=== PATIENT | male | born 1960 | race Caucasian/White ===

== ENCOUNTER 2023-08-02 05:29 | Inpatient (IN) | payer MEDICARE, OTHER, SELFPAY ==
[2023-08-01 20:34] VITALS: BP 165/137; BMI 32.1
[2023-08-01 21:06] LABS: % Basophils 0.3 % (0-2); % Eosinophils 0.1 % (0-6); % Immature Granulocytes 0.7 % (0-0.5); % Lymphocytes 3.4 % (20.5-51.1); % Monocytes 5.7 % (1.7-9.3); % Neutrophils 89.8 % (42.2-75.2); Absolute Immature Granulocytes 0.1 10^3/uL (0-0.05); Absolute Lymphocytes 0.3 10^3/uL (1.2-3.4); Absolute Monocytes 0.5 10^3/uL (0.1-0.6); Absolute Neutrophils 8.5 10^3/uL (1.4-6.5); Hematocrit 40.9 % (39.0-52.0); Hemoglobin 15.2 g/dL (13.0-18.0); Mean Corp Hgb Conc. 37.2 g/dL (33.0-37.0); Mean Corpuscular Hgb 34.1 pg (27.0-31.0); Mean Corpuscular Volume 91.7 fL (80.0-94.0); Mean Platelet Volume 10.9 fL (7.4-10.4); Nucleated Red Blood Cells % 0 % (-); Platelet Count 212 10^3/uL (130-400); Red Blood Cell Count 4.46 10^6/uL (4.70-6.10); Red Cell Dist. Width 13.5 % (11.5-14.5); White Blood Cell Count 9.5 10^3/uL (4.8-10.8)
[2023-08-01 21:16] LABS: COVID-19 Antigen Negative (Negative)
[2023-08-01 21:18] LABS: ALT (SGPT) 51 U/L (0-50); AST (SGOT) 73 U/L (17-59); Albumin 3.6 g/dl (3.5-5.0); Alkaline Phosphatase 83 U/L (38-126); Blood Urea Nitrogen 24 mg/dl (9-20); Calcium 9.3 mg/dl (8.4-10.2); Carbon Dioxide 19 mmol/L (22-30); Chloride 95 mmol/L (98-107); Estimated Creatinine Clearance 55 ml/min; Glucose 191 mg/dl (70-99); Potassium 4.4 mmol/L (3.5-5.1); Sodium 128 mmol/L (135-145); Total Bilirubin 1.3 mg/dl (0.2-1.3); Total Protein 6.1 g/dl (6.3-8.2); eGFR 51.35
[2023-08-02] VITALS (11 sets, daily range): BP systolic 92–134; BP diastolic 42–82; BMI 32.0
[2023-08-02] MEDS: TYLENOL 1000 MG PO (01:29)
[2023-08-02] MEDS: TORADOL 15 MG IV (01:30)
[2023-08-02] MEDS: NSS 1000 IV ×3 (01:31→06:43)
[2023-08-02] MEDS: BENADRYL 25 MG IV (01:32)
[2023-08-02] MEDS: REGLAN 10 MG IV (01:33)
--- NOTE | 2023-08-02 02:15 | ED.GENMED ---
History of Present Illness
General
Chief Complaint: Cold/Flu/URI Symptoms
Source: patient, spouse and family
Exam Limitations: none
Time Seen by Provider: 08/02/23 00:35
Nursing documentation reviewed up to this point in time: agreed with
Travel History
Have you had any contact with someone who has COVID-19?: No
Do you have any symptoms of coronavirus? Fever > 100 degrees, chills, cough, shortness of breath, sore throat, loss of taste or smell, muscle aches, or headache?: No
History of Present Illness
History of Present Illness:
63-year-old male past medical history of diabetes currently on metformin hypothyroidism presenting to the emergency department today with concerns of intermittent fevers of the past 4 days has had some ongoing cough also recently was treated for
hematuria at [facility] last week and has been treated with Bactrim that he finished today. Denies any specific chest pain shortness of breath does have a mild headache denies any neck pain denies abdominal pain changes in bowel
movements. Has had some ongoing hematuria.
Review of Systems
Review of Systems
Allergies reviewed?: Yes
All Other Systems: ROS reviewed and negative except as documented in HPI and ROS
Phy Exam
Physical Exam
Physical Exam:
GENERAL: Alert , in no apparent distress
EYE: pupils equal and reactive
NECK: Supple, no significant adenopathy.
ENT: o/p clr, mmm.
CARDIAC: Regular rate and rhythm .
LUNGS: Clear breath sounds bilaterally, no acute respiratory distress, no wheezes/rales/rhonchi
ABDOMEN: Soft, without focal tenderness, no r/g, no cvat
NEUROLOGICAL: Alert and oriented, no focal neuro deficits
SKIN: Warm and dry, skin intact.
MUSCULOSKELETAL: No edema, well perfused.
PSYCH: Normal and appropriate interaction.
Course
Orders/Labs/Results
Orders:
Orders
08/01/23 20:39
Electrocardiogram (*1) Urgent
Reason for Study: Other
Other Reason for Exam: Possible Sepsis
08/01/23 20:40
EKG- Treatment ONCE
08/01/23 20:54
COVID-19 Antigen Urgent
Source: Nasal Swab
Complete Blood Count/With Diff Urgent
Comprehensive Metabolic Panel Urgent
Free T4 Urgent
Glycohemoglobin (HgbA1c) Urgent
TSH Urgent
Comment: ADD ON
Influenza A+B Rapid Molecular Urgent
TIMOTHY Source: Nasal Swab
Specimen Description:
08/02/23 01:22
Acetaminophen [Tylenol] 1,000 mg PO NOW STA
Diphenhydramine [Benadryl] 25 mg IV NOW STA
Ketorolac [Toradol] 15 mg IV NOW STA
Metoclopramide [Reglan] 10 mg IV NOW STA
08/02/23 01:23
Chest [CR Chest - 2 Views ] Urgent
Comment:
Reason For Exam: cough fever
08/02/23 01:28
Lactic Acid Urgent
08/02/23 02:29
Add On- LAB Urgent
Tests Added?: tsh free t4
08/02/23 02:30
0.9% Sodium Chloride 1000 ml [Nss] 1,000 ml IV BOLUS
08/02/23 02:32
0.9% Sodium Chloride 1000 ml [Nss] 1,000 ml IV BOLUS
08/02/23 02:53
Cefepime HCl [Maxipime] 2,000 mg IV NOW STA
08/02/23 03:16
Blood Culture Q30M
TIMOTHY Source: Blood/Venous
Specimen Description:
Comment: FROM 2 SEPARATE SITES
Blood Culture Q30M
TIMOTHY Source: Blood/Venous
Specimen Description:
Comment: FROM 2 SEPARATE SITES
08/02/23 03:52
Admit/Transfer Patient As Directed
Co-Sign Provider:
Level of Care: Inpatient admission
Assign to:: Telemetry
Physician / Group: Chanel Kuhn
Diagnosis: sepsis, RADHA
Reason for Telemetry: Chest Pain syndromes
Date to Stop Telemetry: 08/04/23
Time to Stop Telemetry: 11:00
Reason for Hospitalization: sepsis, RADHA
Expected length of stay greater than two midnights?: Yes
ELOS- Estimated Length of Stay in days: 3
I certify the patient meets the requirements for IP care: Yes
08/02/23 03:53
Code Status As Directed
Resuscitation Status: Full Code
08/02/23 04:00
Doxycycline [Vibramycin] 100 mg PO Q12H
Flush (0.9% Sodium Chloride) [Flush (Nss)] See Dose Instructions IV PER PROTOCOL
08/02/23 Breakfast
2000 calorie (17 carb) Diabetic
At Your Request: Full Participation
08/02/23 06:04
0.9% Sodium Chloride 1000 ml [Nss] 1,000 ml IV 100 mls/hr
Acetaminophen [Tylenol] 650 mg PO Q4HPRN PRN
Dextrose 50%-Water [Dextrose 50% Syringe] 12.5 grams IV [id number] PRN
Glucagon [GlucaGen] 1 mg IM PRN PRN
Ondansetron Injectable [Zofran] 4 mg IV Q6HPRN PRN
08/02/23 06:04
Add On- LAB Routine
Tests Added?: HgbA1C to today's lab
Activity As Directed
Activity Level: As Tolerated
Bedside Glucose Monitoring As Directed
Frequency: AC&HS
Comment: Change to q6h if pt on TPN, tube feeding or not eating
Pneumatic Compression Sleeves As Directed
Type: Knee high
Vital Signs As Directed
Frequency: Per unit guidelines
DX Deep Vein Thrombosis Video Routine
08/02/23 07:30
Insulin Aspart Corrective Low [Novolog Flexpen-Low Resistance] See Protocol SC AC
08/02/23 08:00
Cyanocobalamin [Vitamin B-12] 1,000 mcg PO DAILY
Fludrocortisone Acetate [Florinef] 0.1 mg PO DAILY
Levothyroxine [Synthroid] 137 mcg PO DAILY
Tamsulosin [Flomax] 0.4 mg PO DAILY
Venlafaxine [Effexor] 75 mg PO BID
08/02/23 14:00
CefTRIAXone [Rocephin] 1,000 mg IV Q24H
08/03/23 08:08
Comprehensive Metabolic Panel IN AM
Magnesium IN AM
08/03/23 08:09
Complete Blood Count/With Diff IN AM
08/04/23 11:00
DC Protocol for Telemetry ONCE
Abnormal Lab Results
08/01/23
20:54
RBC 4.46 L 10^6/uL
(4.70-6.10)
MCH 34.1 H pg
(27.0-31.0)
MCHC 37.2 H g/dL
(33.0-37.0)
MPV 10.9 H fL
(7.4-10.4)
Abs Immat Gran (auto) 0.1 H 10^3/uL
(0-0.05)
Absolute Neuts (auto) 8.5 H 10^3/uL
(1.4-6.5)
Absolute Lymphs (auto) 0.3 L 10^3/uL
(1.2-3.4)
Immature Gran % 0.7 H %
(0-0.5)
Neutrophils % 89.8 H %
(42.2-75.2)
Lymphocytes % 3.4 L %
(20.5-51.1)
Sodium 128 L mmol/L
(135-145)
Chloride 95 L mmol/L
(98-107)
Carbon Dioxide 19 L mmol/L
(22-30)
BUN 24 H mg/dl
(9-20)
Creatinine 1.5 H mg/dL
(0.7-1.3)
Glucose 191 H mg/dl
(70-99)
Hemoglobin A1c 5.8 H %
(4.0-5.6)
AST 73 H U/L
(17-59)
ALT 51 H U/L
(0-50)
Total Protein 6.1 L g/dl
(6.3-8.2)
08/01/23 20:54
08/01/23 20:54
Vital Signs
Initial and Last Documented VS:
Initial Vital Signs
Pulse Resp BP Pulse Ox
144 22 165/137 98
08/01/23 20:34 08/01/23 20:34 08/01/23 20:34 08/01/23 20:34
Last Documented Vital Signs
Temp Pulse Resp BP Pulse Ox
98.0 F 91 16 101/69 94
08/04/23 15:00 08/04/23 15:00 08/04/23 15:00 08/04/23 15:00 08/04/23 15:00
MDM/Problems Addressed
MDM/Problems Addressed:
63-year-old male presenting to the emergency department today with concerns of intermittent fevers over the past 4 days or so. On arrival here patient has a low-grade temperature and elevated heart rate sinus tachycardia in the 140s but improving
to the low 100s after receiving some fluid. Patient no obvious distress during my examination no specific focality to his examination no abdominal pain no neck pain neck is supple. Unclear cause of patient's fever at this time plan for additional
assessment including chest x-ray urinalysis. Labs do show slightly low sodium level 128 elevated creatinine level 1.5 does come to have some slightly elevated levels at baseline. I was able to review old records from [facility] from 8 days ago
where he had a CT scan with no emergent findings and labs were generally unremarkable urinalysis did not appear to be consistent with a UTI at that time.
*Critical Care Note
Total Time (30-74mins, 75-104mins- exclusive of procedures): Not Applicable
ED Attending Note
-
Portions of this chart may have been created with voice recognition software.� Occasional wrong word or��sound alike� substitutions may have occurred due to the inherent limitations of voice recognition software.
Discharge Plan
Departure
Patient Disposition: Admit
Date of Disposition: 08/02/23
Time of Disposition: 03:11
Admit to: Telemetry
Admit to doctor: Bam
Presentation/result/management discussed w/ accepting MD/DO: Hospitalist
Patient with high blood pressure during this ER visit?: No
Condition: Good
Covid-19: Not Applicable
Discharge Problem:
Acute hyponatremia, Fever, RADHA (acute kidney injury)
Interventions
Interventions:
*Neglect/Abuse Screening Last Done: 08/01/23 20:34
ED- Fall Risk Assessment Last Done: 08/02/23 01:57
*Nursing Disposition Last Done: 08/02/23 06:19
ED- Pulmonary Assessment Last Done: 08/02/23 01:57
Discharge Date and Time
Discharge Date/Time: 08/02/23 06:20
[2023-08-02] MEDS: MAXIPIME 2000 MG IV (03:06)
--- NOTE | 2023-08-02 03:14 | HPS.HSE ---
Family Physician
-
Family Physician: Ernesto Bruno
Chief Complaint
-
flu symptoms
History of Present Illness
Mr. Juni Iglesias is a 63 yo man with hx DM, hypothyroidism, HTN, HLD, BPH, prostate CA s/p radiation who presents to the ER with fevers x 4-5 days. Patient went to [facility] last week for hematuria consisting of blood clots. He was seen in the ER
and sent home on Bactrim. Patient showed me lab results on his phone - CT A/P with possible cystitis and UA with 0-5 WBC. He had plans to follow up with Urology. Over the next couple of days patient developed high fevers up to 103. He did not
seek medical attention and continued taking Bactrim. He describes significant fatigue/weakness with difficulty getting out of bed. + headache. no neck stiffness. no skin rash. + nausea and dry heaves today. His appetite was decreased. He has
outpatient work-up of diarrhea that has improved since cutting out dairy and sees GI, no acute worsening. No abdominal pain.
He came to ER today because niece was worried about him.
Medical History
Past Medical History
Past Medical History: Reports HTN, Hypercholesterolemia, NIDDM and Other (hypothyroidism)
Past Surgical History: Reports None
Social History
Tobacco: Non-smoker
Alcohol: Occasional
Family History
Family History: Not pertinent
Allergies / Home Medications
Allergies reflects when Allergies were last updated in [facility].
Home Medications with original date entered in [facility]
Allergy/Medication List:
Allergies
Allergy/AdvReac Type Severity Reaction Status Date / Time
No Known Allergies Allergy Unverified 08/01/23 20:38
Home Medications
atorvastatin 80 mg tablet 80 mg PO QPM 08/02/23
cyanocobalamin (vitamin B-12) 1,000 mcg tablet 1,000 mcg PO DAILY 08/02/23
fludrocortisone 0.1 mg tablet 0.1 mg DAILY 08/02/23
levothyroxine 137 mcg tablet 137 mcg PO DAILY 08/02/23
losartan 50 mg tablet 50 mg PO DAILY 08/02/23
metformin 500 mg tablet 500 mg PO DAILY 08/02/23
multivitamin cap 08/02/23
silodosin 4 mg capsule 4 mg PO DAILY 08/02/23
venlafaxine 75 mg tablet 75 mg PO BID 08/02/23
vitamin A 3,000 mcg (10,000 unit) capsule 3,000 mcg PO DAILY 08/02/23
Review of Systems
-
History Source: Patient
A 12 point ROS was completed and negative except as noted: Yes
Physical Exam
Vital Signs
Vital Signs
Temp Pulse Resp BP Pulse Ox
98.4 F 102 14 165/137 92
08/02/23 02:18 08/02/23 02:00 08/02/23 02:00 08/01/23 20:34 08/02/23 02:00
Physical Exam
General: Conversant
Respiratory: Clear; No Wheezes
Cardiac: S1/S2 and Regular Rhythm
GI: Soft and Non Tender
Musculoskeletal: No Edema
Skin: Warm and Dry; No Rash
Neuro: AO x 3
Psych: Calm
Laboratory Results
-
08/01/23 20:54
08/01/23 20:54
Laboratory Results
Lactic Acid 2.0 mmol/L (0.7-2.0) 08/02/23 01:28
Total Bilirubin 1.3 mg/dl (0.2-1.3) 08/01/23 20:54
AST 73 U/L (17-59) H 08/01/23 20:54
ALT 51 U/L (0-50) H 08/01/23 20:54
Alkaline Phosphatase 83 U/L (38-126) 08/01/23 20:54
Data Reviewed
-
Diagnostic Radiology: Report Reviewed by me
Lab Data: Labs Reviewed by me
Impression/Plan
-
Mr. Juni Iglesias is a 63 yo man with hx DM, hypothyroidism, HTN, HLD, BPH, prostate CA s/p radiation who presents to the ER with fevers x 4-5 days. He recently complete a course of Bactrim prescribed last week for hematuria.
Triage VS: T 98.4, P 144, RR 22, BP 165/137, SpO2 98%
LABS: WBC 9.5, Hg 15.2, PLT 212, Na 128, Cl 95, CO2 19, BUN 24, Cr 1.5, Glucose 191, lactate 2.0, T. Bili 1.3, AST 73, ALT, 51
covid and flu negative
MAR: Vanc, Cefepime, Toradol, Reglan, NS x 2
Sepsis versus SIRS 2/2 drug reaction
-unclear if patient has new infection post ER visit versus drug reaction given correlation of high fevers after starting Bactrim. No eosinophilia; no rash.
-Bactrim listed under allergies explanation for now - team to delete if infectious cause of fevers confirmed.
-CXR with possible right lower lobe PNA; cefepime ordered in ER - will change to ceftriaxone/Doxy to cover for CAP; F/U final radiology read
-F/U blood cultures
-awaiting UA
-IVF
Hematuria
-hx radiation for prostate CA
-seen at [facility] last week, now resolved. Patient missed outpatient appt for cystoscopy with Urologist given current illness, to follow up as outpatient.
Hyponatremia
-likely effect from Bactrim; hypovolemia
-monitor with IVF
RADHA
-likely effect from Bactrim and history suggests dehydration
-IVF
-hold SEWER BUILDER Losartan
NIDDM
-hold SEWER BUILDER metformin
-ISS low
-diabetic diet
Transaminitis
-in setting of sepsis; no abdominal pain - repeat in AM
Hypothyroidism
-SEWER BUILDER Synthroid
HLD
-hold statin for now with transaminitis
Essential Hypertension
-hold ARB
BPH
-SEWER BUILDER Silodosin
DVT PPx SCD given recent hematuria
FULL CODE
[2023-08-02] MEDS: VIBRAMYCIN 100 MG PO ×2 (04:28→16:44)
[2023-08-02 04:57] LABS: Free T4 1.58 ng/dl (0.78-2.19)
[2023-08-02 05:11] LABS: TSH 2.28 uIU/ml (0.47-4.68)
--- NOTE | 2023-08-02 06:15 | PTCARENOTE ---
Received patient from ED. Stable vitals. No Pain at this time. Patient ambulated to and from the bathroom with one assist and RW. POC reviewed with patient.
[2023-08-02 07:41] LABS: Glucose - Point of Care 117 mg/dl (70-99)
[2023-08-02] MEDS: SYNTHROID 137 MCG PO (08:21)
[2023-08-02] MEDS: FLOMAX 0.400000000000000022 MG PO (08:21)
[2023-08-02] MEDS: FLORINEF 0.100000000000000006 MG PO (08:21)
[2023-08-02] MEDS: VITAMIN B-12 1000 MCG PO (08:21)
[2023-08-02] MEDS: EFFEXOR 75 MG PO ×2 (08:21→19:37)
[2023-08-02 09:24] LABS: Glycohemoglobin (HgbA1c) 5.8 % (4.0-5.6)
--- NOTE | 2023-08-02 11:50 | W.PN.HOSP.TC ---
Today's Communication/Plan
-
escalate abx to Zosyn
ct a/p
f/u LFT
Assessment / Plan
Assessment / Plan
Sepsis versus SIRS 2/2 drug reaction
-Patient 100.5 Fahrenheit and heart rate above 100 at admit. Normal WBC
-UA/chest x-ray clear
-COVID/flu negative
-Blood culture negative for 24 hours
-Patient had CT abdomen pelvis 2 weeks before showing cystitis, repeat ordered
Hematuria
hx radiation for prostate CA
-Patient follows up with urologist at [facility]
-Patient reports of episodic hematuria
-no episode in hospital, monitor.
Acute on chronic Hyponatremia
-likely effect from Bactrim; hypovolemia
-Na improved to 131, from 128 at admit
RADHA- Improved
-2/2 to JOLYNN/bactrim use
-improved with IVF
NIDDM
-Hold metformin, maintain on ISS
Hypokalemia
-replace PRN
Transaminitis
-small upward trend, CT a/p ordered
-normal T graham, monitor
Hypothyroidism
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
HLD
-hold statin for now with transaminitis
Essential Hypertension
-hold ARB
BPH
-TRUCK SAFETY INSPECTOR Silodosin
DVT PPx SCD given recent hematuria
FULL CODE
Niece updated.
Anticipated Discharge: 24 - 48 hours
Subjective/Interval History
-
Date of Service: August 02, 2023
Patient feeling unwell overall
No specific complaints
Had some chills, Tmax of 100.4F
Objective Data
-
Vital Signs:
Vital Signs
Temp Pulse Resp BP Pulse Ox
97.8 F 85 18 100/42 96
08/02/23 07:00 08/02/23 07:00 08/02/23 07:00 08/02/23 07:00 08/02/23 07:00
Review of Systems
-
Respiratory: Reports No Symptoms
Cardiac: Reports No Symptoms
Abdomen/GI: Reports No Symptoms
Physical Exam
-
General: Negative Respiratory Distress or Appears in Distress
HEENT: Negative Oxygen
Respiratory: Clear to Auscultation
Cardiac: Regular Rhythm and S1/S2; Negative Murmur
GI: Soft, Nontender and Nondistended
Neuro: Awake, Alert, Oriented and No Motor Deficits
Psych: Calm
[2023-08-02 12:27] LABS: Glucose - Point of Care 101 mg/dl (70-99)
[2023-08-02] MEDS: ROCEPHIN 1000 MG IV (13:00)
[2023-08-02] MEDS: TYLENOL 650 MG PO ×2 (13:00→19:37)
[2023-08-02] MEDS: STERILE WATER FOR INJECTION 10 ML IV (13:00)
[2023-08-02 14:37] LABS: Urine Albumin Trace (Neg - Trace); Urine Bilirubin 1+ (Negative); Urine Character Clear (Clear); Urine Color Yellow; Urine Glucose Negative (Negative); Urine Ketone Trace (Negative); Urine Leukocyte Trace (Negative); Urine Nitrite Negative (Negative); Urine Occult Blood Trace (Negative); Urine Urobilinogen Negative (Neg - 1+)
[2023-08-02 14:53] LABS: Urine Red Blood Cell 0-2 /HPF (0-2)
[2023-08-02 14:54] LABS: Urine Bacteria Few (Negative)
[2023-08-02 16:37] LABS: Glucose - Point of Care 99 mg/dl (70-99)
[2023-08-02] MEDS: SODIUM BICARBONATE 650 MG PO ×2 (16:44→21:00)
[2023-08-02 20:09] LABS: Hepatitis C Antibody Negative (Negative)
[2023-08-02 21:35] LABS: Glucose - Point of Care 146 mg/dl (70-99)
[2023-08-03] VITALS (7 sets, daily range): BP systolic 107–118; BP diastolic 58–74
[2023-08-03] MEDS: VIBRAMYCIN 100 MG PO (03:00)
[2023-08-03 07:14] LABS: Glucose - Point of Care 111 mg/dl (70-99)
[2023-08-03] MEDS: FLOMAX 0.400000000000000022 MG PO (08:07)
[2023-08-03] MEDS: SODIUM BICARBONATE 650 MG PO ×3 (08:07→21:49)
[2023-08-03] MEDS: SYNTHROID 137 MCG PO (08:07)
[2023-08-03] MEDS: EFFEXOR 75 MG PO ×2 (08:07→19:29)
[2023-08-03] MEDS: FLORINEF 0.100000000000000006 MG PO (08:07)
[2023-08-03] MEDS: VITAMIN B-12 1000 MCG PO (08:07)
[2023-08-03] MEDS: TYLENOL 650 MG PO (08:14)
[2023-08-03 09:12] LABS: % Basophils 0.2 % (0-2); % Eosinophils 1.5 % (0-6); % Immature Granulocytes 0.4 % (0-0.5); % Lymphocytes 6.5 % (20.5-51.1); % Monocytes 11.4 % (1.7-9.3); Absolute Eosinophils 0.1 10^3/uL (0-0.7); Absolute Lymphocytes 0.3 10^3/uL (1.2-3.4); Absolute Monocytes 0.5 10^3/uL (0.1-0.6); Absolute Neutrophils 3.8 10^3/uL (1.4-6.5); Hematocrit 34.4 % (39.0-52.0); Hemoglobin 12.4 g/dL (13.0-18.0); Mean Corpuscular Hgb 34.3 pg (27.0-31.0); Mean Corpuscular Volume 95.3 fL (80.0-94.0); Mean Platelet Volume 11.5 fL (7.4-10.4); Nucleated Red Blood Cells % 0 % (-); Platelet Count 175 10^3/uL (130-400); Red Blood Cell Count 3.61 10^6/uL (4.70-6.10); Red Cell Dist. Width 13.7 % (11.5-14.5); White Blood Cell Count 4.8 10^3/uL (4.8-10.8)
[2023-08-03 09:31] LABS: ALT (SGPT) 111 U/L (0-50); AST (SGOT) 147 U/L (17-59); Albumin 2.7 g/dl (3.5-5.0); Alkaline Phosphatase 110 U/L (38-126); Blood Urea Nitrogen 13 mg/dl (9-20); Calcium 8.6 mg/dl (8.4-10.2); Carbon Dioxide 25 mmol/L (22-30); Chloride 97 mmol/L (98-107); Estimated Creatinine Clearance > 125 ml/min; Glucose 108 mg/dl (70-99); Magnesium 1.7 mg/dl (1.6-2.3); Potassium 3.4 mmol/L (3.5-5.1); Sodium 131 mmol/L (135-145); eGFR > 60.00
[2023-08-03 11:49] LABS: Glucose - Point of Care 121 mg/dl (70-99)
[2023-08-03] MEDS: ZOSYN 50 IV ×2 (11:55→17:21)
[2023-08-03] MEDS: OMNIPAQUE 50 ML PO (12:08)
--- NOTE | 2023-08-03 13:18 | CM ---
editorial manager reviewed patient's chart and met with patient and patient lives alone in a 1st floor condo, patient reports he is independent with adl's and uses a walker with ambulation, patient has a prescription plan and uses [facility], case
resource development manager provided patient with brochure and Advanced Directive form.
PCP: Dr. Bruno
Plan; Home with stable, no needs.
[2023-08-03] MEDS: STERILE WATER FOR INJECTION IV (14:20)
[2023-08-03 15:15] LABS: Procalcitonin 2.53 ng/ml (0.0-0.25)
[2023-08-03 16:46] LABS: Glucose - Point of Care 134 mg/dl (70-99)
[2023-08-03 21:20] LABS: Glucose - Point of Care 149 mg/dl (70-99)
--- NOTE | 2023-08-04 00:30 | PTCARENOTE ---
Pt voided with blood-tinged urine w/ nickel size clot. Denies pain currently, but has had intermittent upper abdominal pain and kidney pain. Offered PRN Tylenol, but Pt declined caleb. Vital signs are stable, will continue to monitor
[2023-08-04] MEDS: ZOSYN 50 IV ×5 (00:47→23:08)
[2023-08-04 03:10] VITALS: BP 99/60
[2023-08-04 06:11] LABS: Hematocrit 31.7 % (39.0-52.0); Hemoglobin 11.5 g/dL (13.0-18.0); Mean Corp Hgb Conc. 36.3 g/dL (33.0-37.0); Mean Corpuscular Hgb 34.2 pg (27.0-31.0); Mean Corpuscular Volume 94.3 fL (80.0-94.0); Platelet Count 195 10^3/uL (130-400); Red Blood Cell Count 3.36 10^6/uL (4.70-6.10); Red Cell Dist. Width 13.5 % (11.5-14.5); White Blood Cell Count 4.8 10^3/uL (4.8-10.8)
[2023-08-04 06:47] LABS: ALT (SGPT) 128 U/L (0-50); AST (SGOT) 138 U/L (17-59); Albumin 2.6 g/dl (3.5-5.0); Alkaline Phosphatase 128 U/L (38-126); Blood Urea Nitrogen 11 mg/dl (9-20); Calcium 8.4 mg/dl (8.4-10.2); Carbon Dioxide 30 mmol/L (22-30); Chloride 99 mmol/L (98-107); Direct Bilirubin 0.7 mg/dl (0.0-0.4); Estimated Creatinine Clearance > 125 ml/min; Glucose 103 mg/dl (70-99); Potassium 3.1 mmol/L (3.5-5.1); Sodium 130 mmol/L (135-145); Total Bilirubin 0.9 mg/dl (0.2-1.3); Total Protein 4.9 g/dl (6.3-8.2); eGFR > 60.00
[2023-08-04 07:22] VITALS: BP 113/67
[2023-08-04 08:05] LABS: Glucose - Point of Care 104 mg/dl (70-99)
[2023-08-04] MEDS: SODIUM BICARBONATE 650 MG PO (08:54)
[2023-08-04] MEDS: FLOMAX 0.400000000000000022 MG PO (08:54)
[2023-08-04] MEDS: FLORINEF 0.100000000000000006 MG PO (08:54)
[2023-08-04] MEDS: VITAMIN B-12 1000 MCG PO (08:54)
[2023-08-04] MEDS: EFFEXOR 75 MG PO ×2 (08:54→19:09)
[2023-08-04] MEDS: KCL 40 MEQ PO (08:54)
[2023-08-04] MEDS: SYNTHROID 137 MCG PO (08:54)
--- NOTE | 2023-08-04 09:03 | W.PN.HOSP.TC ---
Today's Communication/Plan
-
Maintained on IV Zosyn
Afebrile, follow clinical
CTAP normal except possible cystitis
Episode of hematuria, monitor for retention issues
Assessment / Plan
Assessment / Plan
CTR a/p
1. Mild wall thickening involving the urinary bladder, with adjacent inflammatory change. Please correlate with urinalysis to evaluate for possible cystitis.
2. Right adrenal nodule, measuring 1.4 cm in diameter, incompletely characterized on the current abdominal pelvic CT. Consider nonemergent lumbar spine MRI, or adrenal protocol CT.

Sepsis versus SIRS 2/2 drug reaction
Acute cystitis
-Patient 100.5 Fahrenheit and heart rate above 100 at admit. Normal WBC
-UA/chest x-ray clear
-COVID/flu negative
-Procal 2.53
-Blood culture negative for 24 hours
-CTAP showing acute cystitis. Patient is planned to follow-up with urology on outpatient basis for elective cystoscopy at [facility]
-Maintain on empiric zosyn.
Hematuria
hx radiation for prostate CA
Urinary incontinence
-Patient follows up with urologist at [facility]
-Patient reports of episodic hematuria
-Episode of cranberry juice type hematuria yesterday night. No signs of retention monitor.
Acute on chronic Hyponatremia
-likely effect from Bactrim; hypovolemia
-Na improved to 131, from 128 at admit
RADHA- Improved
-2/2 to JOLYNN/bactrim use
-improved with IVF
NIDDM
-Hold metformin, maintain on ISS
Hypokalemia
-replace with 40meq K
Transaminitis
-small upward trend, CT a/p didnot show major liver abnormalities
-Liver/GB US ordered.
Hypothyroidism
-CONSUMER INSIGHTS SPECIALIST Synthroid
HLD
-hold statin for now with transaminitis
Essential Hypertension
-hold ARB
BPH
-CONSUMER INSIGHTS SPECIALIST Silodosin
DVT PPx SCD given recent hematuria
FULL CODE
08/03 Niece updated.
Anticipated Discharge: Within 24 hours
Subjective/Interval History
-
Date of Service: August 04, 2023
Patient feeling bit well today
Afebrile overnight
Notice cranberry juice urine yesterday,
Objective Data
-
Labs:
Laboratory Results
08/04/23
05:25
WBC 4.8
Hgb 11.5 L
Hct 31.7 L
Plt Count 195
Sodium 130 L
Potassium 3.1 L
Chloride 99
Carbon Dioxide 30
BUN 11
Creatinine 0.6 L
Glucose 103 H
Calcium 8.4
Total Bilirubin 0.9
AST 138 H
ALT 128 H
Alkaline Phosphatase 128 H
Vital Signs:
Vital Signs
Temp Pulse Resp BP Pulse Ox
98.2 F 85 16 113/67 92
08/04/23 07:22 08/04/23 07:22 08/04/23 07:22 08/04/23 07:22 08/04/23 07:22
I&O
08/03/23 08/04/23 08/05/23
06:59 06:59 06:59
Intake Total 1440 / 1440 940 / 940
Output Total 400 / 400 250 / 250
Balance 1040 / 1040 690 / 690
Review of Systems
-
Respiratory: Reports No Symptoms
Cardiac: Reports No Symptoms
Abdomen/GI: Reports No Symptoms
Genitourinary: Reports Incontinence and Bleeding
Physical Exam
-
General: Negative Respiratory Distress or Appears in Distress
HEENT: Negative Oxygen
GI: Soft, Nontender and Nondistended
Neuro: Awake, Alert, Oriented and No Motor Deficits
Psych: Calm
[2023-08-04] MEDS: TYLENOL 650 MG PO (09:06)
[2023-08-04 11:00] VITALS: BP 113/78
[2023-08-04 11:42] LABS: Glucose - Point of Care 216 mg/dl (70-99)
[2023-08-04 12:23] LABS: Glucose - Point of Care 188 mg/dl (70-99)
[2023-08-04 15:00] VITALS: BP 101/69
[2023-08-04 16:53] LABS: Glucose - Point of Care 126 mg/dl (70-99)
[2023-08-04 19:28] VITALS: BP 103/69
[2023-08-04 21:47] LABS: Glucose - Point of Care 131 mg/dl (70-99)
[2023-08-04 23:47] VITALS: BP 125/79
[2023-08-05 03:06] VITALS: BP 112/69
[2023-08-05] MEDS: ZOSYN 50 IV ×2 (05:22→12:36)
[2023-08-05 05:54] LABS: Hematocrit 33.6 % (39.0-52.0); Hemoglobin 11.9 g/dL (13.0-18.0); Mean Corp Hgb Conc. 35.4 g/dL (33.0-37.0); Mean Corpuscular Hgb 34.2 pg (27.0-31.0); Mean Corpuscular Volume 96.6 fL (80.0-94.0); Mean Platelet Volume 10.9 fL (7.4-10.4); Platelet Count 220 10^3/uL (130-400); Red Blood Cell Count 3.48 10^6/uL (4.70-6.10); Red Cell Dist. Width 13.4 % (11.5-14.5); White Blood Cell Count 4.7 10^3/uL (4.8-10.8)
[2023-08-05 06:18] LABS: Blood Urea Nitrogen 12 mg/dl (9-20); Calcium 8.7 mg/dl (8.4-10.2); Carbon Dioxide 29 mmol/L (22-30); Chloride 98 mmol/L (98-107); Estimated Creatinine Clearance > 125 ml/min; Glucose 106 mg/dl (70-99); Potassium 3.4 mmol/L (3.5-5.1); Sodium 134 mmol/L (135-145); eGFR > 60.00
[2023-08-05 07:25] VITALS: BP 135/78
[2023-08-05 07:35] LABS: Glucose - Point of Care 98 mg/dl (70-99)
[2023-08-05] MEDS: SYNTHROID 137 MCG PO (08:00)
--- NOTE | 2023-08-05 08:41 | W.PN.HOSP.TC ---
Today's Communication/Plan
-
d/c home
Assessment / Plan
Assessment / Plan
CTR a/p
1. Mild wall thickening involving the urinary bladder, with adjacent inflammatory change. Please correlate with urinalysis to evaluate for possible cystitis.
2. Right adrenal nodule, measuring 1.4 cm in diameter, incompletely characterized on the current abdominal pelvic CT. Consider nonemergent lumbar spine MRI, or adrenal protocol CT.

Sepsis versus SIRS 2/2 drug reaction
Acute cystitis
-Patient 100.5 Fahrenheit and heart rate above 100 at admit. Normal WBC
-UA/chest x-ray clear
-COVID/flu negative
-Procal 2.53
-Blood culture negative for 24 hours
-CTAP showing acute cystitis. Patient is planned to follow-up with urology on outpatient basis for elective cystoscopy at [facility]
-Patient improved with empiric Zosyn, transition to oral Augmentin therapy at discharge for 3 days.
Hematuria
hx radiation for prostate CA
Urinary incontinence
-Patient follows up with urologist at [facility]
-Patient reports of episodic hematuria
-Episode of cranberry juice type hematuria day before. Advised patient to follow-up with primary urologist at [facility] for elective cystoscopy as planned.
Acute on chronic Hyponatremia
-likely effect from Bactrim; hypovolemia
-Na improved to 131, from 128 at admit
RADHA- Improved
-2/2 to JOLYNN/bactrim use
-improved with IVF
NIDDM
-Resume back home regimen of medication at discharge.
Hypokalemia
-replace with 40meq K
Transaminitis
-small upward trend, CT a/p didnot show major liver abnormalities
-Liver/GB US negative for acute issues.
Hypothyroidism
-AUTOMATION TESTER Synthroid
HLD
-hold statin for now with transaminitis
Essential Hypertension
-hold ARB
BPH
-AUTOMATION TESTER Silodosin
DVT PPx SCD given recent hematuria
FULL CODE
08/03 Niece updated.
More than 30 minutes spent in discharge including
Final examination of the patient
Summarizing hospital stay
Instructions for continuing care to all relevant caregivers
Preparation of discharge records, prescriptions, and referral forms
Total time spent (in minutes): 38 mins
Anticipated Discharge: Today
Subjective/Interval History
-
Date of Service: August 05, 2023
Patient feeling better
No more episodes of fever overnight
No further episodes of hematuria
Objective Data
-
Labs:
Laboratory Results
08/05/23
05:23
WBC 4.7 L
Hgb 11.9 L
Hct 33.6 L
Plt Count 220
Sodium 134 L
Potassium 3.4 L
Chloride 98
Carbon Dioxide 29
BUN 12
Creatinine 0.6 L
Glucose 106 H
Calcium 8.7
Vital Signs:
Vital Signs
Temp Pulse Resp BP Pulse Ox
97.4 F 81 12 135/78 96
08/05/23 07:25 08/05/23 07:25 08/05/23 07:25 08/05/23 07:25 08/05/23 07:25
I&O
08/04/23 08/05/23 08/06/23
06:59 06:59 06:59
Intake Total 940 / 940 1620 / 1620
Output Total 250 / 250
Balance 690 / 690 1620 / 1620
Review of Systems
-
Respiratory: Reports No Symptoms
Cardiac: Reports No Symptoms
Abdomen/GI: Reports No Symptoms
Physical Exam
-
General: Negative Respiratory Distress or Appears in Distress
HEENT: Negative Oxygen
GI: Soft, Nontender and Nondistended
Neuro: Awake, Alert, Oriented and No Motor Deficits
Psych: Calm
--- NOTE | 2023-08-05 08:43 | W.DCSUMMARY ---
Discharge Summary
Discharge Data
Date of Admission: 08/02/23
Date of Discharge: 08/05/23
-
Pending Results: No
Hospital Course
Discharging Physician : Dr Sharath Mccrary
Disposition : Home
Primary care physician : Dr. Juni Maynard
Principal Discharge diagnosis :
Systemic inflammatory response syndrome possibly from drug reaction
Mild cystitis
Episode of hematuria
Acute on chronic hyponatremia
Acute kidney injury
Hypokalemia
Transaminitis
Chronic Discharge diagnosis :
History of radiation for prostate cancer
Urinary incontinence
Pij-ponnoeh-hslebdsjl mild mellitus
Hypothyroidism
Hyperlipidemia
Essential hypertension
Episodic diarrhea
Hospital Course :
Patient is a 63-year-old male with above-mentioned past medical history came to ER for having episode of fever and overall not feeling well. Patient have history of prostate cancer and radiation and have developed episodic hematuria issues
afterwards. Patient was in [facility] ER for hematuria/blood clot after on Bactrim therapy. Patient started to having generalized weakness/fatigue and nausea. At admit patient noted to be having fever episode although UA/chest x-ray/COVID/flu
was negative. There was question of patient possibly having bacteremia and blood cultures were collected. Patient was started on IV antibiotics/IV fluid and was admitted for further monitoring. After 24 hours patient still did not have any
improvement in symptoms and antibiotics were escalated to Zosyn. Abdomen pelvis was done which showed acute cystitis only, procal was elevated to 2.53. Patient also had episode of hematuria post admission although did not require any
intervention/Martinez catheter placement. Over next 48 hours patient became afebrile and overall felt better. Hematuria resolved itself as well. At discharge patient was transition to 3 days of oral Augmentin therapy with plan to follow-up with
urology in office. Of note patient primary urologist at [facility] is planning to help patient undergo cystoscopic evaluation.
Beside this patient had renal dysfunction as well likely related to JOLYNN/Bactrim use, this normalized after stopping the medications and providing patient with IVF.
Patient also had mild transaminitis with ALT/AST in range of 100-130. Liver/GB but ultrasound was negative for any stone/cholecystitis. Patient to hold atorvastatin at discharge.
Patient also has chronic hyponatremia which had some acute worsening. This improved with IV fluid resuscitation and stopping of Bactrim therapy. Patient discharged home post medical stabilization.
Important imaging findings :
None
Procedure findings :
None
Discharge Plan
-
Patient Disposition: Home (Routine Discharge)
Discharge Diagnosis/Procedures: SIRS, mild cystitis, episodic hematuria
Condition: Fair
Diet: Diabetic, Carb Controlled
Activity: As tolerated
Driving Restrictions: No driving for 24 hours
Bathing Restrictions: OK to Shower
Activity Restrictions/Additional Instructions:
Follow-up with your primary urologist at [facility] for cystoscopy.
Referrals:
Ernesto Bruno MD [Family Provider] - in one week
Prescriptions:
New
amoxicillin-pot clavulanate 875-125 mg tablet
1 tab PO BID Qty: 6 0RF
Continued
losartan 50 mg Tablet
50 mg PO DAILY
metformin 500 mg Tablet
500 mg PO DAILY
Rx Instructions:
WITH MEAL
levothyroxine 137 mcg Tablet
137 mcg PO DAILY
atorvastatin 80 mg Tablet
80 mg PO QPM
venlafaxine 75 mg Tablet
75 mg PO BID
cyanocobalamin (vitamin B-12) 1,000 mcg Tablet
1,000 mcg PO DAILY
vitamin A 3,000 mcg (10,000 unit) Capsule
3,000 mcg PO DAILY
multivitamin Capsule
fludrocortisone 0.1 mg Tablet
0.1 mg DAILY
silodosin 4 mg Capsule
4 mg PO DAILY
Discharge Orders:
Discharge Patient (As Directed); Ordered 08/05/23
Ordered By: Sharath Mccrary
[2023-08-05] MEDS: FLORINEF 0.100000000000000006 MG PO (09:17)
[2023-08-05] MEDS: FLOMAX 0.400000000000000022 MG PO (09:17)
[2023-08-05] MEDS: EFFEXOR 75 MG PO (09:18)
[2023-08-05] MEDS: PREVNAR 20 0.5 ML IM (09:18)
[2023-08-05] MEDS: VITAMIN B-12 1000 MCG PO (09:18)
[2023-08-05] MEDS: FLUZONE HIGH-DOSE QUAD 2023-24 0.699999999999999956 ML IM (09:21)
[2023-08-05 11:44] VITALS: BP 115/71
[2023-08-05 12:23] LABS: Glucose - Point of Care 150 mg/dl (70-99)
--- NOTE | 2023-08-05 13:00 | CM ---
CM following re :d/c planning.
Cm met with pt at bedside, no d/c needs expected.
pt's brother in law will be driving him home today.
IMM given and discussed.
No needs.
== END 2023-08-05 14:10 | disposition home or self-care (01) | DRG 872 ==
LOC: 4 WEST ACU 05:29
PROVIDERS: Emergency Medicine; Physician Assistant; ADMITTING PHYSICIAN Student in an Organized Health Care Education/Training Program; ATTENDING PHYSICIAN Hospitalist; EMERGENCY PHYSICIAN Emergency Medicine; FAMILY PHYSICIAN Family Medicine
DX: A41.9 Sepsis, unspecified organism (principal); N30.01 Acute cystitis with hematuria; E87.1 Hypo-osmolality and hyponatremia; N17.9 Acute kidney failure, unspecified; E87.6 Hypokalemia; E03.9 Hypothyroidism, unspecified; E78.00 Pure hypercholesterolemia, unspecified; I10 Essential (primary) hypertension; N40.0 Benign prostatic hyperplasia without lower urinary tract symptoms; E11.9 Type 2 diabetes mellitus without complications; Z85.46 Personal history of malignant neoplasm of prostate; Z79.84 Long term (current) use of oral hypoglycemic drugs
CPT/HCPCS: 51798; 71046; 74177; 76700; 80048; 80053; 81003; 81015; 82248; 82962; 83036; 83605; 83735; 84145; 84439; 84443; 85025; 85027; 86803; 87040; 87502; 87811; 90662; 90677; 93005; 96361; 96374; 96375; 99285; G0008; G0009; Q9967